=== PATIENT | male | born 1960 | race Caucasian/White ===

== ENCOUNTER 2019-06-24 17:55 | Inpatient (IN) | payer BC, OTHER ==
[2019-06-24] MEDS ORDERED: SODIUM CHLORIDE 0.9% 500 ML 500 ML IV STA (17:58)
[2019-06-24] MEDS ORDERED: PANTOPRAZOLE 40 MG/10 ML VIAL IVP STA (17:58)
[2019-06-24] MEDS ORDERED: LORazepam 2 MG/ML INJ IV STA (17:58)
[2019-06-24] MEDS ORDERED: SODIUM CHLORIDE 0.9% 1,000 ML IV STA (17:58)
[2019-06-24] MEDS ORDERED: OCTREOTIDE 100 MCG/ML INJ IVP STA (18:01)
--- NOTE | 2019-06-24 18:02 | ED ---
General Adult HPI - General Stated complaint: Vomiting blood Time Seen by Provider: 06/24/19 17:55 Source: patient, family, EMS, RN notes reviewed, old records reviewed - History of Present Illness Initial comments: This is a 58-year-old male who presents emergency Department with a past medical history significant for alcoholism. Patient states over the last few days been having dark black stools and today he got home he was having an upset stomach and he vomited 3-4 times bright red blood. Patient states he no longer is having any abdominal pain. Patient denies any lightheadedness or dizziness. Patient denies any palpitations or chest pain. Patient denies any difficulty breathing shortness of breath. Patient states he did have some whiskey when he got home today. Patient denies any recent fever chills or cough. Patient denies any blood thinners. Patient denies ever having any bleeding problems in the past. - Related Data Home Medications Medication Instructions Recorded Confirmed Ascorbic Acid [Vitamin C] 1,000 mg PO HS 06/24/19 06/24/19 Rosuvastatin [Crestor] 20 mg PO HS 06/24/19 06/24/19 amLODIPine BESYLATE/BENAZEPRIL 1 cap PO DAILY 06/24/19 06/24/19 [amLODIPine BESYLATE/BENAZEPRIL 10-20 MG] Allergies Allergy/AdvReac Type Severity Reaction Status Date / Time codeine Allergy Rash/Hives Verified 06/24/19 18:44 Penicillins Allergy Rash/Hives Verified 06/24/19 18:44 Review of Systems ROS Statement: Those systems with pertinent positive or pertinent negative responses have been documented in the HPI. ROS Other: All systems not noted in ROS Statement are negative. General Exam - General Exam Comments Initial Comments: GENERAL: Patient is well-developed and well-nourished. Patient is nontoxic and well- hydrated and is in mild distress. ENT: Neck is soft and supple. No significant lymphadenopathy is noted. Oropharynx is clear. Moist mucous membranes. Neck has full range of motion without eliciting any pain. EYES: The sclera were anicteric and conjunctiva were pink and moist. Extraocular movements were intact and pupils were equal round and reactive to light. Eyelids were unremarkable. PULMONARY: Unlabored respirations. Good breath sounds bilaterally. No audible rales rhonchi or wheezing was noted. CARDIOVASCULAR: There is a regular rate and rhythm without any murmurs gallops or rubs. ABDOMEN: Soft and nontender with normal bowel sounds. SKIN: Skin is clear with no lesions or rashes and otherwise unremarkable. NEUROLOGIC: Patient is alert and oriented x3. Cranial nerves II through XII are grossly intact. Motor and sensory are also intact. Normal speech, volume and content. Symmetrical smile. MUSCULOSKELETAL: Normal extremities with adequate strength and full range of motion. LYMPHATICS: No significant lymphadenopathy is noted PSYCHIATRIC: Normal psychiatric evaluation. Course Vital Signs 06/24/19 18:04 Temperature 98.6 F Pulse Rate 109 H Respiratory 19 Rate Blood Pressure 106/75 O2 Sat by Pulse 100 Oximetry Medical Decision Making - Medical Decision Making EKG shows sinus tachycardia at 110 bpm NM interval 142 QRS 110 QT interval 356 QTC is 41 per patient's EKG shows no ST segment elevation or depression - Lab Data Result diagrams: 06/24/19 18:07 06/24/19 18:07 Lab Results 06/24/19 06/24/19 06/24/19 Range/Units 18:07 18:07 18:07 WBC 13.3 H (3.8-10.6) k/uL RBC 3.27 L (4.30-5.90) m/uL Hgb 10.8 L (13.0-17.5) gm/dL Hct 31.7 L (39.0-53.0) % MCV 96.8 (80.0-100.0) fL MCH 33.1 (25.0-35.0) pg MCHC 34.2 (31.0-37.0) g/dL RDW 13.6 (11.5-15.5) % Plt Count 208 (150-450) k/uL Neutrophils % 72 % Lymphocytes % 20 % Monocytes % 4 % Eosinophils % 2 % Basophils % 0 % Neutrophils # 9.6 H (1.3-7.7) k/uL Lymphocytes # 2.7 (1.0-4.8) k/uL Monocytes # 0.5 (0-1.0) k/uL Eosinophils # 0.3 (0-0.7) k/uL Basophils # 0.0 (0-0.2) k/uL PT 10.3 (9.0-12.0) sec INR 1.0 (<1.2) APTT 17.8 L (22.0-30.0) sec Sodium 135 L (137-145) mmol/L Potassium 4.0 (3.5-5.1) mmol/L Chloride 104 (98-107) mmol/L Carbon Dioxide 22 (22-30) mmol/L Anion Gap 9 mmol/L BUN 24 H (9-20) mg/dL Creatinine 0.82 (0.66-1.25) mg/dL Est GFR (CKD-EPI)AfAm >90 (>60 ml/min/1.73 sqM) Est GFR (CKD-EPI)NonAf >90 (>60 ml/min/1.73 sqM) Glucose 101 H (74-99) mg/dL Calcium 8.9 (8.4-10.2) mg/dL Magnesium 1.5 L (1.6-2.3) mg/dL Total Bilirubin 0.7 (0.2-1.3) mg/dL AST 64 H (17-59) U/L ALT 46 (4-49) U/L Alkaline Phosphatase 86 (38-126) U/L Troponin I (0.000-0.034) ng/mL Total Protein 6.1 L (6.3-8.2) g/dL Albumin 4.0 (3.5-5.0) g/dL Lipase 84 (23-300) U/L Serum Alcohol 11 mg/dL Blood Type Blood Type Confirm Blood Type Recheck Bld Type Recheck Status Antibody Screen Spec Expiration Date 06/24/19 06/24/19 06/24/19 Range/Units 18:07 18:07 18:45 WBC (3.8-10.6) k/uL RBC (4.30-5.90) m/uL Hgb (13.0-17.5) gm/dL Hct (39.0-53.0) % MCV (80.0-100.0) fL MCH (25.0-35.0) pg MCHC (31.0-37.0) g/dL RDW (11.5-15.5) % Plt Count (150-450) k/uL Neutrophils % % Lymphocytes % % Monocytes % % Eosinophils % % Basophils % % Neutrophils # (1.3-7.7) k/uL Lymphocytes # (1.0-4.8) k/uL Monocytes # (0-1.0) k/uL Eosinophils # (0-0.7) k/uL Basophils # (0-0.2) k/uL PT (9.0-12.0) sec INR (<1.2) APTT (22.0-30.0) sec Sodium (137-145) mmol/L Potassium (3.5-5.1) mmol/L Chloride (98-107) mmol/L Carbon Dioxide (22-30) mmol/L Anion Gap mmol/L BUN (9-20) mg/dL Creatinine (0.66-1.25) mg/dL Est GFR (CKD-EPI)AfAm (>60 ml/min/1.73 sqM) Est GFR (CKD-EPI)NonAf (>60 ml/min/1.73 sqM) Glucose (74-99) mg/dL Calcium (8.4-10.2) mg/dL Magnesium (1.6-2.3) mg/dL Total Bilirubin (0.2-1.3) mg/dL AST (17-59) U/L ALT (4-49) U/L Alkaline Phosphatase (38-126) U/L Troponin I <0.012 (0.000-0.034) ng/mL Total Protein (6.3-8.2) g/dL Albumin (3.5-5.0) g/dL Lipase (23-300) U/L Serum Alcohol mg/dL Blood Type O Positive Blood Type Confirm O Positive Blood Type Recheck No Previous Record Bld Type Recheck Status CABO Indicated Antibody Screen NEGATIVE Spec Expiration Date 06/27/20192306 Disposition Clinical Impression: Alcohol abuse, Hematemesis, Melena Disposition: ADMITTED IP TO THIS HOSP Referrals: Bart Bey DO [Primary Care Provider] - 1-2 days Time of Disposition: 19:18
[2019-06-24 18:17] LABS: Basophils % (A) 0 %; Eosinophils # (A) 0.3 k/uL (0-0.7); Eosinophils % (A) 2 %; HCT 31.7 % (39.0-53.0); HGB 10.8 gm/dL (13.0-17.5); Lymphocytes # (A) 2.7 k/uL (1.0-4.8); Lymphocytes % (A) 20 %; MCH 33.1 pg (25.0-35.0); MCHC 34.2 g/dL (31.0-37.0); MCV 96.8 fL (80.0-100.0); Mean Platelet Volume 7.4; Monocytes # (A) 0.5 k/uL (0-1.0); Monocytes % (A) 4 %; Neutrophils # (A) 9.6 k/uL (1.3-7.7); Neutrophils % (A) 72 %; Platelet Count 208 k/uL (150-450); RBC 3.27 m/uL (4.30-5.90); RDW 13.6 % (11.5-15.5); WBC 13.3 k/uL (3.8-10.6)
[2019-06-24 18:27] LABS: ALT 46 U/L (4-49); AST 64 U/L (17-59); African American GFR (CKD) >90 (>60 ml/min/1.73 sqM); Alcohol 11 mg/dL; Alkaline Phosphatase 86 U/L (38-126); Anion Gap 9 mmol/L; Blood Urea Nitrogen 24 mg/dL (9-20); Calcium 8.9 mg/dL (8.4-10.2); Carbon Dioxide 22 mmol/L (22-30); Chloride 104 mmol/L (98-107); Glucose 101 mg/dL (74-99); Magnesium 1.5 mg/dL (1.6-2.3); Non-African American GFR(CKD) >90 (>60 ml/min/1.73 sqM); Sodium 135 mmol/L (137-145); Total Bilirubin 0.7 mg/dL (0.2-1.3); Total Protein 6.1 g/dL (6.3-8.2)
[2019-06-24 18:30] LABS: Prothrombin Time 10.3 sec (9.0-12.0)
[2019-06-24 18:34] LABS: Partial Thromboplastin Time 17.8 sec (22.0-30.0)
--- NOTE | 2019-06-24 19:07 | XR ---
EXAMINATION TYPE: XR chest 2V DATE OF EXAM: 06/24/2019 COMPARISON: NONE HISTORY: Vomiting blood TECHNIQUE: 2 views FINDINGS: Heart and mediastinum are normal. There is some mild linear density right middle lobe. Ther e are no hilar masses. Bony thorax is intact. There are chest leads. IMPRESSION: Mild subsegmental atelectasis or scarring in the anterior right middle lobe. Normal heart .
[2019-06-24] MEDS ORDERED: SODIUM CHLORIDE 0.9% 1,000 ML IV ONE ×2 (19:18→22:32)
[2019-06-24] MEDS ORDERED: LORazepam 2 MG/ML INJ IV PRN ×3 (19:20)
[2019-06-24] MEDS ORDERED: THIAMINE 100 MG/ML 2 ML VIAL IM STA (19:20)
[2019-06-24] MEDS: THIAMINE 100 MG TAB PO SCH (19:32)
--- NOTE | 2019-06-24 22:12 | P.HPIM ---
History of Present Illness H&P Date: 06/24/19 The patient is a 58-year-old male with a PMH of hypertension, hyperlipidemia, tobacco abuse, and EtOH abuse who presented to the ED with complaints of black stools and bloody vomitus. The patient notes that he initially noticed dark black stools a few days prior, though didn't pay much attention to it. He reports that earlier today, he had a sudden onset of nausea with 3-4 episodes of bright red large vomitus. He denied a previous history of peptic ulcer disease, or esophageal varices. He notes no previous episodes of GI bleeding or bleeding elsewhere. He notes that immediately following the episodes of vomiting, he felt dizzy, which lasted for a few minutes. He denied any further episodes of abdominal pain, nausea, diarrhea, fever, chills. He also denied recent travel, sick contacts, chest pain, shortness of breath. The patient notes that he usually drinks 4-5 shots of whiskey daily, and has been doing so for several decades. He reports his last drink was yesterday evening. The patient underwent an extensive evaluation in the emergency room. His vitals upon presentation were BP 106/75, pulse 109, temperature 98.6, and SpO2 100% on room air. Chest x-ray was unremarkable, with EKG showing sinus tachycardia at 110 bpm with an incomplete right bundle branch block. Laboratory evaluation revealed a WBC count 13.3, hemoglobin 10.8, platelets 208, alcohol level 11, sodium 135, potassium 4.0, BUN 24, and creatinine 0.8, troponin less than 0.012, AST 64, magnesium 1.5, and albumin 4.0. Review of Systems Pertinent positives and negatives as discussed in HPI, a complete review of systems was performed and all other systems are negative. Past Medical History Past Medical History: Hyperlipidemia, Hypertension Additional Past Medical History / Comment(s): ETOH- 6-8 shots/ day History of Any Multi-Drug Resistant Organisms: None Reported Past Surgical History: Back Surgery, Cholecystectomy Additional Past Surgical History / Comment(s): prostate CA and surgery in 2013, back sx 2019 Past Anesthesia/Blood Transfusion Reactions: No Reported Reaction Smoking Status: Current every day smoker Past Alcohol Use History: Abuse, Daily Past Drug Use History: None Reported Medications and Allergies Home Medications Medication Instructions Recorded Confirmed Type Ascorbic Acid [Vitamin C] 1,000 mg PO HS 06/24/19 06/24/19 History Rosuvastatin [Crestor] 20 mg PO HS 06/24/19 06/24/19 History amLODIPine BESYLATE/BENAZEPRIL 1 cap PO DAILY 06/24/19 06/24/19 History [amLODIPine BESYLATE/BENAZEPRIL 10-20 MG] Allergies Allergy/AdvReac Type Severity Reaction Status Date / Time codeine Allergy Rash/Hives Verified 06/24/19 18:44 Penicillins Allergy Rash/Hives Verified 06/24/19 18:44 Physical Exam Vitals: Vital Signs Temp Pulse Resp BP Pulse Ox 06/24/19 19:34 98.1 F 90 18 99/68 98 06/24/19 18:04 98.6 F 109 H 19 106/75 100 Intake and Output 06/24/19 06/24/19 06/24/19 06:59 14:59 22:59 Other: Voiding Method Toilet Weight 70.307 kg General: non toxic, no distress, appears at stated age, normal weight Derm: no unusual rashes/lesions no unusual ecchymoses, warm, dry Head: atraumatic, normocephalic, symmetric Eyes: EOMI, no lid lag, anicteric sclera, pupils equal round reactive to light ENT: Nose and ears atraumatic, no thrush, no pharyngeal erythema Neck: No thyromegaly, no cervical lymphadenopathy, trachea midline, supple Mouth: no lip lesion, mucus membranes moist Cardiovascular: S1S2 reg, no murmur, positive posterior tibial pulse bilateral, no edema, capillary refill less than 2 seconds Lungs: CTA bilateral, no rhonchi, no rales , no accessory muscle use Abdominal: soft, nontender to palpation, no guarding, no appreciable organomegaly, normal bowel sounds Ext: no gross muscle atrophy, muscle strength 5 out of 5 in all 4 extremities grossly, no contractures, Neuro: CN II-XI grossly intact, light touch intact all 4 extremities, finger to nose within normal limits, Psych: Alert, oriented, appropriate affect Results CBC & Chem 7: 06/24/19 18:07 06/24/19 18:07 Labs: Abnormal Lab Results - Last 24 Hours (Table) 06/24/19 06/24/19 06/24/19 Range/Units 18:07 18:07 18:07 WBC 13.3 H (3.8-10.6) k/uL RBC 3.27 L (4.30-5.90) m/uL Hgb 10.8 L (13.0-17.5) gm/dL Hct 31.7 L (39.0-53.0) % Neutrophils # 9.6 H (1.3-7.7) k/uL APTT 17.8 L (22.0-30.0) sec Sodium 135 L (137-145) mmol/L BUN 24 H (9-20) mg/dL Glucose 101 H (74-99) mg/dL Magnesium 1.5 L (1.6-2.3) mg/dL AST 64 H (17-59) U/L Total Protein 6.1 L (6.3-8.2) g/dL Thrombosis Risk Factor Assmnt - Choose All That Apply Each Factor Represents 1 point: Age 41-60 years Thrombosis Risk Factor Assessment Total Risk Factor Score: 1 Thrombosis Risk Factor Assessment Level: Low Risk Assessment and Plan Plan: Acute blood loss anemia with hematemesis and melena -Possibly secondary to esophageal varices versus peptic ulcer disease -Continue with Protonix IV push every 12 hourly -GI consult -CBC every 8 hourly -Continue with normal saline 100 mL an hour -Continue with thiamine -CIWA protocol -Aspiration, fall, seizure precautions -Nothing by mouth for now -Strongly advised on importance of abstinence from alcohol Hypomagnesemia -Replace and monitor Leukocytosis -No signs of active infection at this time -Likely due to acute distress -Monitor CBC Elevated BUN, likely due to acute GI bleed -Monitor for now -Continue with IV fluids DVT prophylaxis -IPCDs The patient is admitted with an anticipated greater than 2 midnight stay for evaluation of acute blood loss anemia CODE STATUS: Full Code Discussed with: Patient Anticipated discharge date: 2-[address]: Home A total of 40 minutes was spent on the care of this complex patient more than 50% of the time was spent in counseling and care coordination.
[2019-06-24] MEDS: MAGNESIUM SULFATE-D5W PMX 1 GM in DEXTROSE/WATER 1 100ML.BAG IVPB SCH ×2 (22:36→23:40)
[2019-06-24] MEDS: ATORVASTATIN 40 MG TAB PO SCH (23:19)
[2019-06-24 23:53] LABS: MCHC 33.5 g/dL (31.0-37.0); MCV 98.2 fL (80.0-100.0); Mean Platelet Volume 7.5; Platelet Count 157 k/uL (150-450); RBC 2.64 m/uL (4.30-5.90); RDW 13.5 % (11.5-15.5); WBC 7.1 k/uL (3.8-10.6)
[2019-06-24 23:55] LABS: HGB 8.7 gm/dL (13.0-17.5)
[2019-06-25] MEDS: MAGNESIUM SULFATE-D5W PMX 1 GM in DEXTROSE/WATER 1 100ML.BAG IVPB SCH (00:49)
--- NOTE | 2019-06-25 01:33 | P.PN ---
Progress Note - Text Progress Note Date: 06/25/19 The patient's Hgb dropped from 10.8 to 8.7 with persistent borderline BP. Discussed the case with Dr. Nuñez (GI bus driver/monitor), who recommended transferring the patient to MICU and initiating Octreotide infusion. Discussed with Dr. Rubi, who accepted the patient. Will transfer to MICU. 1 U pRBCs ordered. The patient was seen at the bedside on the Med/Surg unit at 0100. He noted feeling okay albeit somewhat tired. Denied dizziness, abdominal pain, chest pain, SOB, further episodes of vomiting or additional bowel movements.
[2019-06-25] MEDS ORDERED: OCTREOTIDE 500 MCG in SODIUM CHLORIDE 0.9% 250 ML IV SCH (02:00)
[2019-06-25 02:21] LABS: Glucose,Whole Blood 142 mg/dL (75-99)
[2019-06-25 07:28] LABS: Basophils % (A) 0 %; Eosinophils # (A) 0.2 k/uL (0-0.7); Eosinophils % (A) 3 %; HCT 29.8 % (39.0-53.0); HGB 10.2 gm/dL (13.0-17.5); Lymphocytes # (A) 1.4 k/uL (1.0-4.8); Lymphocytes % (A) 24 %; MCH 33.3 pg (25.0-35.0); MCHC 34.3 g/dL (31.0-37.0); MCV 96.9 fL (80.0-100.0); Mean Platelet Volume 7.6; Monocytes # (A) 0.4 k/uL (0-1.0); Monocytes % (A) 7 %; Neutrophils # (A) 3.5 k/uL (1.3-7.7); Neutrophils % (A) 64 %; Platelet Count 161 k/uL (150-450); RBC 3.08 m/uL (4.30-5.90); RDW 13.9 % (11.5-15.5); WBC 5.5 k/uL (3.8-10.6)
[2019-06-25 08:19] LABS: ALT 153 U/L (4-49); AST 449 U/L (17-59); African American GFR (CKD) >90 (>60 ml/min/1.73 sqM); Albumin 3.1 g/dL (3.5-5.0); Alkaline Phosphatase 142 U/L (38-126); Anion Gap 3 mmol/L; Blood Urea Nitrogen 17 mg/dL (9-20); Calcium 8.1 mg/dL (8.4-10.2); Carbon Dioxide 25 mmol/L (22-30); Chloride 109 mmol/L (98-107); Glucose 102 mg/dL (74-99); Magnesium 2.3 mg/dL (1.6-2.3); Non-African American GFR(CKD) >90 (>60 ml/min/1.73 sqM); Potassium 4.5 mmol/L (3.5-5.1); Sodium 137 mmol/L (137-145); Total Protein 5.3 g/dL (6.3-8.2)
[2019-06-25] MEDS: THIAMINE 100 MG TAB PO SCH ×2 (08:19→17:19)
[2019-06-25] MEDS: PANTOPRAZOLE 40 MG/10 ML VIAL IVP SCH ×2 (08:32→20:06)
[2019-06-25] MEDS ORDERED: PANTOPRAZOLE 40 MG/10 ML VIAL IVP SCH (09:00)
[2019-06-25] MEDS ORDERED: diphenhydrAMINE 50 MG/ML 1 ML VIAL IVP PRN (10:02)
--- NOTE | 2019-06-25 10:19 | P.PN ---
Subjective Progress Note Date: 06/25/19 Principal diagnosis: GI bleeding Patient having severe itching in his left arm and due to the itch he currently has scabs all over his left arm. No further bleeding since he came in to the hospital. No nausea or vomiting. No pain. Objective - Vital Signs Vital signs: Vital Signs Temp 98 F 06/25/19 08:00 Pulse 83 06/25/19 09:00 Resp 12 06/25/19 09:00 BP 102/75 06/25/19 09:00 Pulse Ox 99 06/25/19 09:00 Intake & Output 06/24/19 06/25/19 06/25/19 18:59 06:59 18:59 Intake Total 1070.0 312.5 Output Total 1100 1100 Balance -30.0 -787.5 Weight 70.307 kg 70.307 kg Intake: IV 450.0 312.5 Octreotide 500 mcg In 50.0 12.5 Sodium Chloride 0.9% 250 ml @ 25 MCG/HR 12.5 mls/ hr IV .Q20H [facility] Rx#: [id number] Sodium Chloride 0.9% 1, 400 300 000 ml @ 100 mls/hr IV . Q10H [facility] Rx#:[id number] Blood Product 620 Rc Pheresis As-3 Unit 310 [id number] Output: Urine 1100 1100 Other: Voiding Method Urinal Urinal # Voids 1 - Exam Constitutional: No acute distress, conversant, pleasant Eyes:Anicteric sclerae, moist conjunctiva, no lid-lag, PERRLA, ENMT: Oropharynx clear, no erythema, exudates Neck: Supple, FROM, no masses, or JVD, No carotid bruits, No thyromegaly Lungs: Clear to auscultation, Clear to percussion, Normal respiratory effort, no accessory muscle use Cardiovascular: Heart regular in rate and rhythm, No murmurs, gallops, or rubs, No peripheral edema Abdominal: Soft, Nontender, no guarding, rebound or rigidity, Normoactive bowel sounds, No hepatomegaly, No splenomegaly, No palpable mass Skin: Scabs over the left arm. Normal temperature, tone, texture, turgor, no induration, No subcutaneous nodules, No rash, lesions, No ulcers Extremities: No digital cyanosis, No clubbing, Pedal pulses intact and symmetrical, Radial pulses intact and symmetrical, No calf tenderness Psychiatric: Alert and oriented to person, place and time, appropriate affect, intact judgement Neuro: Muscles Strength 5/5 in all 4 extremities, Sensation to light touch grossly present throughout, Cranial nerves II-XII grossly intact, no focal sensory deficits - Labs CBC & Chem 7: 06/25/19 07:16 06/25/19 07:16 Labs: Abnormal Lab Results - Last 24 Hours (Table) 06/24/19 06/24/19 06/24/19 Range/Units 18:07 18:07 18:07 WBC 13.3 H (3.8-10.6) k/uL RBC 3.27 L (4.30-5.90) m/uL Hgb 10.8 L (13.0-17.5) gm/dL Hct 31.7 L (39.0-53.0) % Neutrophils # 9.6 H (1.3-7.7) k/uL APTT 17.8 L (22.0-30.0) sec Sodium 135 L (137-145) mmol/L Chloride (98-107) mmol/L BUN 24 H (9-20) mg/dL Glucose 101 H (74-99) mg/dL POC Glucose (mg/dL) (75-99) mg/dL Calcium (8.4-10.2) mg/dL Magnesium 1.5 L (1.6-2.3) mg/dL Total Bilirubin (0.2-1.3) mg/dL AST 64 H (17-59) U/L ALT (4-49) U/L Alkaline Phosphatase (38-126) U/L Total Protein 6.1 L (6.3-8.2) g/dL Albumin (3.5-5.0) g/dL Crossmatch 06/24/19 06/24/19 06/25/19 Range/Units 18:07 23:20 02:18 WBC (3.8-10.6) k/uL RBC 2.64 L (4.30-5.90) m/uL Hgb 8.7 L D (13.0-17.5) gm/dL Hct 26.0 L (39.0-53.0) % Neutrophils # (1.3-7.7) k/uL APTT (22.0-30.0) sec Sodium (137-145) mmol/L Chloride (98-107) mmol/L BUN (9-20) mg/dL Glucose (74-99) mg/dL POC Glucose (mg/dL) 142 H (75-99) mg/dL Calcium (8.4-10.2) mg/dL Magnesium (1.6-2.3) mg/dL Total Bilirubin (0.2-1.3) mg/dL AST (17-59) U/L ALT (4-49) U/L Alkaline Phosphatase (38-126) U/L Total Protein (6.3-8.2) g/dL Albumin (3.5-5.0) g/dL Crossmatch See Detail 06/25/19 06/25/19 Range/Units 07:16 07:16 WBC (3.8-10.6) k/uL RBC 3.08 L (4.30-5.90) m/uL Hgb 10.2 L (13.0-17.5) gm/dL Hct 29.8 L (39.0-53.0) % Neutrophils # (1.3-7.7) k/uL APTT (22.0-30.0) sec Sodium (137-145) mmol/L Chloride 109 H (98-107) mmol/L BUN (9-20) mg/dL Glucose 102 H (74-99) mg/dL POC Glucose (mg/dL) (75-99) mg/dL Calcium 8.1 L (8.4-10.2) mg/dL Magnesium (1.6-2.3) mg/dL Total Bilirubin 2.0 H (0.2-1.3) mg/dL AST 449 H (17-59) U/L ALT 153 H (4-49) U/L Alkaline Phosphatase 142 H (38-126) U/L Total Protein 5.3 L (6.3-8.2) g/dL Albumin 3.1 L (3.5-5.0) g/dL Crossmatch Assessment and Plan Plan: Acute blood loss anemia with hematemesis and melena -Bleeding currently resolved. Possibly secondary to esophageal varices versus peptic ulcer disease -Continue with Protonix IV push every 12 hourly, continue octreotide drip recommended by GI -CBC every 8 hourly -S/p 1 unit of PRBCs on 06/23 -Continue with normal saline 100 mL an hour -Continue with thiamine -CIWA protocol -Aspiration, fall, seizure precautions -Nothing by mouth for now -Strongly advised on importance of abstinence from alcohol -Plan EGD by GI Hypomagnesemia -Replace and monitor Hyperbilirubinemia, elevated LFTs Could be secondary to acute hepatitis induced by alcohol Trend LFTs and bilirubin for now Benadryl as needed for itching Leukocytosis -Resolved -Likely due to acute distress DVT prophylaxis -IPCDs Anticipated discharge date: 2-[address]: Home A total of 40 minutes was spent on the care of this complex patient more than 50% of the time was spent in counseling and care coordination.
--- NOTE | 2019-06-25 10:32 | US ---
EXAMINATION TYPE: US abdomen complete DATE OF EXAM: 06/25/2019 COMPARISON: NONE CLINICAL HISTORY: elevated LFTs, ETOH abuse. Elevated liver enzymes, history of cholecystectomy, exam done portable. EXAM MEASUREMENTS: Liver Length: 15.1 cm CBD: 1.1 cm Spleen: 8.2 cm Right Kidney: 10.3 x 6.0 x 4.7 cm Left Kidney: 9.9 x 5.9 x 4.9 cm Pancreas: visualized portions wnl, limited by overlying midline bowel gas Liver: wnl Gallbladder: surgically absent Evidence for sonographic Marion's sign: no CBD: mildly dilated Spleen: visualized portions wnl, limited by overlying bowel gas Right Kidney: wnl Left Kidney: wnl Upper IVC: wnl Abd Aorta: wnl The liver is homogenous. The intrahepatic portion of the IVC and proximal abdominal aorta are within normal limits. Common bile duct is mildly dilated. The visualized portions of the pancreas are phillip ogenous. The spleen is unremarkable. Kidneys are symmetric and free of hydronephrosis. No renal le sions are seen. IMPRESSION: Gallbladder is surgically absent and common bile duct is mildly enlarged for post cholecy stectomy patient. MRCP could be considered for further evaluation.
[2019-06-25] MEDS ORDERED: IV FLUID CONTINUATION 1,000 ML IV ONE (10:33)
[2019-06-25] MEDS ORDERED: MIDAZOLAM 2 MG/2 ML VIAL ONE (10:35)
[2019-06-25] MEDS ORDERED: PROPOFOL 10 MG/ML 20 ML VIAL IV ONE (10:35)
[2019-06-25] MEDS ORDERED: fentaNYL (PF) 50 MCG/ML 2 ML AMP ONE (10:35)
[2019-06-25] MEDS ORDERED: SODIUM CHLORIDE 0.9% 500 ML 500 ML IV ONE (10:45)
[2019-06-25] MEDS ORDERED: EPINEPHrine 10 ML SYRINGE (0.1 MG/ML) MISCELLANE ONE (10:55)
--- NOTE | 2019-06-25 10:55 | P.CNPUL ---
History of Present Illness Consult date: 06/25/19 Requesting physician: Tacho Gabriel Reason for consult: other (Upper GI bleeding) Chief complaint: Vomiting blood and black stool History of present illness: This is a 58-year-old white male with history of hypertension, dyslipidemia, history of alcoholic abuse, patient drinks on the average of 4-5 drinks of whiskey and Coke for the last 20 years on a daily basis. No previous history of GI bleeding, no history of peptic ulcer disease, no history of esophageal varices, patient does not use any nonsteroidal anti-inflammatory drugs. Patient presented to the ER, brought in by EMS with chief complaint of vomiting blood and black stools. This started suddenly, although the day prior he had some black stools. After 3-4 episodes of bright red vomitus, patient developed dizziness and diaphoresis. Brought in by EMS and he was initially admitted to the regular medical floor. However overnight patient developed worsening episodes of upper GI bleeding, and his hemoglobin dropped to 8.7 from 10.8. His blood pressure was borderline, hence GI was notified, and recommended icy admission. Patient was admitted to the ICU, placed on octreotide, and he was also placed on Protonix. Supposed to undergo EGD this morning, patient received fluids and so far 1 unit of packed RBCs overnight. He is hemodynamically stable, denies any further episodes of hematemesis since last night. Continues to have a black stools. Again the patient has no previous history of peptic ulcer disease, no history of gastritis, and does not take any nonsteroidal anti- inflammatory drugs. Review of Systems Constitutional: Denies fever chills weight loss. HEENT: Denies headache denies diplopia denies earache denies sore throat. Pulmonary: Denies any cough wheezing or shortness of breath denies any chest pain denies any hemoptysis. Cardiac: Denies any chest pain orthopnea or PND, he did have episodes of diaphoresis while he was vomiting blood. GI: As noted in HPI. Genitourinary: Denies any dysuria frequency urgency hematuria or dysuria. Musculoskeletal: Denies any arthralgia or myalgia. Skin: Denies any pruritus or rashes. Endocrine: Denies any heat or cold intolerance. Neurologic: Denies any headache or blurred vision or vertigo. Psychiatric: Denies any symptoms of anxiety or depression. Hematologic: Denies any previous history of clotting bleeding or bruising. Past Medical History Past Medical History: Hyperlipidemia, Hypertension Additional Past Medical History / Comment(s): ETOH- 6-8 shots/ day History of Any Multi-Drug Resistant Organisms: None Reported Past Surgical History: Back Surgery, Cholecystectomy Additional Past Surgical History / Comment(s): prostate CA and surgery in 2014, back sx 2019 Past Anesthesia/Blood Transfusion Reactions: No Reported Reaction Smoking Status: Current every day smoker Past Alcohol Use History: Abuse, Daily Past Drug Use History: None Reported Medications and Allergies Home Medications Medication Instructions Recorded Confirmed Type Ascorbic Acid [Vitamin C] 1,000 mg PO HS 06/24/19 06/24/19 History Rosuvastatin [Crestor] 20 mg PO HS 06/24/19 06/24/19 History amLODIPine BESYLATE/BENAZEPRIL 1 cap PO DAILY 06/24/19 06/24/19 History [amLODIPine BESYLATE/BENAZEPRIL 10-20 MG] Allergies Allergy/AdvReac Type Severity Reaction Status Date / Time codeine Allergy Rash/Hives Verified 06/24/19 18:44 Penicillins Allergy Rash/Hives Verified 06/24/19 18:44 Physical Exam Vitals: Vital Signs Temp Pulse Pulse Resp BP BP Pulse Ox 06/25/19 09:00 83 12 102/75 99 06/25/19 08:00 98 F 70 12 108/70 98 06/25/19 07:00 67 12 90/62 96 06/25/19 06:00 70 12 106/68 96 06/25/19 05:50 97.9 F 71 12 106/68 94 L 06/25/19 05:00 72 15 103/65 95 06/25/19 04:43 98.3 F 75 16 120/78 98 06/25/19 04:13 98.1 F 69 12 109/68 97 06/25/19 04:03 98.3 F 73 14 112/81 06/25/19 04:00 98.3 F 69 14 111/69 99 06/25/19 03:30 75 14 101/70 95 06/25/19 03:00 70 13 107/75 96 06/25/19 02:30 98.5 F 80 12 111/77 95 06/25/19 00:35 83 97/64 06/24/19 22:24 98.1 F 87 18 94/64 98 06/24/19 19:34 98.1 F 90 18 99/68 98 06/24/19 18:04 98.6 F 109 H 19 106/75 100 Intake and Output 06/24/19 06/25/19 06/25/19 22:59 06:59 14:59 Intake Total 1070.0 312.5 Output Total 1100 1100 Balance -30.0 -787.5 Intake: IV 450.0 312.5 Octreotide 500 mcg In 50.0 12.5 Sodium Chloride 0.9% 250 ml @ 25 MCG/HR 12.5 mls/ hr IV .Q20H [facility] Rx#: [id number] Sodium Chloride 0.9% 1, 400 300 000 ml @ 100 mls/hr IV . Q10H ONE Rx#:[id number] Blood Product 620 Rc Pheresis As-3 Unit 310 [id number] Output: Urine 1100 1100 Other: Voiding Method Toilet Urinal Urinal # Voids 1 Weight 70.307 kg Physical Exam: Revealed a 58-year-old white male in no distress, on room air. Head: Atraumatic normocephalic. HEENT:[Neck is supple.] [No neck masses.] [No thyromegaly.] [No JVD.]EOMI, no icteru Chest: [Clear throughout, no crackles, no rhonchi, no wheezes.] Cardiac Exam: [Normal S1 and S2, no S3 gallop, no murmur.] Abdomen: [Soft, nontender, no megaly, no rebound, no guarding, normal bowel sounds.] Extremities: [No clubbing, no edema, no cyanosis.] Neurological Exam: [No focal neurologic deficit.] Alert and oriented 3. Psychiatric: Normal mood affect and normal mental status examination. Skin: No rashes. Lymphatics: No lymphadenopathy. Musculoskeletal: No limitation in range of motion, no deformities. Results - Laboratory Findings CBC and BMP: 06/25/19 07:16 06/25/19 07:16 PT/INR, D-dimer PT 10.3 sec (9.0-12.0) 06/24/19 18:07 INR 1.0 (<1.2) 06/24/19 18:07 Abnormal lab findings: Abnormal Labs 06/24/19 06/24/19 06/24/19 18:07 18:07 18:07 WBC 13.3 H RBC 3.27 L Hgb 10.8 L Hct 31.7 L Neutrophils # 9.6 H APTT 17.8 L Sodium 135 L Chloride BUN 24 H Glucose 101 H POC Glucose (mg/dL) Calcium Magnesium 1.5 L Total Bilirubin AST 64 H ALT Alkaline Phosphatase Total Protein 6.1 L Albumin Crossmatch 06/24/19 06/24/19 06/25/19 18:07 23:20 02:18 WBC RBC 2.64 L Hgb 8.7 L D Hct 26.0 L Neutrophils # APTT Sodium Chloride BUN Glucose POC Glucose (mg/dL) 142 H Calcium Magnesium Total Bilirubin AST ALT Alkaline Phosphatase Total Protein Albumin Crossmatch See Detail 06/25/19 06/25/19 07:16 07:16 WBC RBC 3.08 L Hgb 10.2 L Hct 29.8 L Neutrophils # APTT Sodium Chloride 109 H BUN Glucose 102 H POC Glucose (mg/dL) Calcium 8.1 L Magnesium Total Bilirubin 2.0 H AST 449 H ALT 153 H Alkaline Phosphatase 142 H Total Protein 5.3 L Albumin 3.1 L Crossmatch - Diagnostic Findings Chest x-ray: image reviewed (Chest x-ray showed mostly mild subsegmental atelectasis or scarring in the right middle lobe) Additional studies: Ultrasound of the abdomen was noted to be basically unremarkable except for mild enlargement of the common bile duct. Assessment and Plan Assessment: Impression: Acute upper GI bleeding, differential diagnoses includes esophageal varices, peptic ulcer disease, or possibly erosive gastritis. EGD is pending. History of benign essential hypertension Acute blood loss anemia with hematemesis and melena. History of alcohol abuse Tobacco dependence syndrome. History of cholecystectomy History of prostate cancer and previous prostatectomy History of cervical spine surgery for cervical disc disease. Recommendation: Continue to monitor in the intensive care unit over the next 24 hours. Continue octreotide Continue Protonix EGD will be done in the next couple of hours. And based on the findings further recommendations will follow. Transfuse for hemoglobin below 7 Continue CIWA protocol for alcohol abuse Counseled regarding smoking cessation and alcohol abuse. We will continue to follow. Time with Patient: Greater than 30
--- NOTE | 2019-06-25 10:59 | P.PCN ---
Date of Procedure: 06/25/19 Procedure(s) Performed: BRIEF HISTORY: Patient is a 54-year-old, pleasant, white male, scheduled for an upper endoscopy as a part of evaluation of acute upper GI bleed. He presented to the hospital with several episodes of hematemesis and melena for the last 3 days' duration. Hemoglobin was 8.9 and according 1 unit of blood transfusion. Current hemoglobin 10 g/dL.. PROCEDURE PERFORMED: Esophagogastroduodenoscopy with injection epinephrine, attempted Endo Clip placement, cautery with gold probe and biopsy. PREOPERATIVE DIAGNOSIS: Acute upper GI bleed IV sedation per anesthesia. PROCEDURE: After informed consent was obtained, the patient was brought into the endoscopy unit. IV sedation was administered by Anesthesia under continuous monitoring. Initially the Olympus GIF-140 video endoscope was inserted into the mouth. Esophagus intubated without any difficulty. It was gradually advanced into the stomach and duodenum and carefully examined. The bulb and the second part of the duodenum appeared normal. The scope at this time was withdrawn to the stomach, adequately insufflated with air, and upon careful examination, there was a 2 cm broad-based ulcer with a visible vessel noted in the antrum of the stomach with no active bleeding. At this time attempted Endo Clip placement was marked successful because of angulation. I injected with 1 in 10,000 epinephrine at the base of the ulcer, about 8 mL was injected followed by cautery using a gold probe. The rest of the mucosa of the antrum, body, cardia and the fundus appeared normal. Biopsies were done from the antrum to rule out H. pylori infection. The scope was then withdrawn into the esophagus. The GE junction was located at 39 cm from the incisors. Small hiatal hernia noted. There were 2 tongues of Smith's appearing mucosa extending 5 mm proximal to the GE junction which was biopsied. The rest of the esophagus appeared normal. There were no erosions or ulcerations seen and the patient tolerated the procedure well. IMPRESSION: 1. 2 cm antral ulcer with a visible vessel status post injection epinephrine, attempted Endo Clip placement, cautery using a gold probe followed by biopsy. 2. Small hiatal hernia and short segment Smith's esophagus status post biopsy. RECOMMENDATIONS: The findings of this examination were discussed with the patient as well as his family. He was advised to follow with the biopsy results. He will continue with IV Protonix 40 mg twice daily. Simvastatin was discontinued. He'll be started on a clear liquid diet and monitor CBC daily 6 hours..
--- NOTE | 2019-06-25 11:31 | CONS ---
CONSULTATION DATE OF DICTATION: 06/25/2019 REASON FOR CONSULTATION: Acute upper GI bleed. HISTORY OF PRESENT ILLNESS: The patient is a 58-year-old pleasant white male with history of heavy alcohol abuse, admitted to the hospital with four episodes of hematemesis. Prior to that, he was having black tarry stools for the last three days duration. He was having some epigastric and periumbilical abdominal pain that started yesterday morning and subsequently became extremely nauseated and short of breath and had about four episodes of bright red emesis at home. He came into the emergency room and subsequently admitted to the hospital to the floor. Through the night, he dropped his hemoglobin from 10 to 8.9 requiring a unit of blood transfusion and was transferred to the intensive care unit. We are consulted for further management. The patient has history of moderate drinking for 20 years. He drinks about 4 to 5 shots of whiskey every day. No prior history of peptic ulcer disease. No recent NSAID use. No prior history of GI bleed. PAST MEDICAL HISTORY: Hypertension, hyperlipidemia, chronic back pain and alcohol abuse. PAST SURGICAL HISTORY: Back surgery, cholecystectomy, prostate surgery for prostate cancer in 2013. MEDICATIONS: Medications at home include vitamin C, Crestor, benazepril. ALLERGIES: CODEINE, PENICILLIN. SOCIAL HISTORY: Chronic smoker. Alcohol use as mentioned above. FAMILY HISTORY: Unremarkable. REVIEW OF SYSTEMS: CARDIOPULMONARY: No chest pain, but did have some shortness of breath GENITOURINARY: No dysuria or hematuria. MUSCULOSKELETAL: Unremarkable. SKIN: Unremarkable. ENDOCRINE: Unremarkable PSYCHIATRIC: Unremarkable. NEUROLOGY: Unremarkable. ENT/VISION: Unremarkable. HEMATOLOGY: Anemia. CONSTITUTIONAL: No recent weight loss. No fever, chills, night sweats. PHYSICAL EXAMINATION: On physical examination, appears comfortable. Blood pressure 108/70, pulse rate 70, temperature 98. HEENT: Examination unremarkable. Conjunctivae pink. Sclerae anicteric. Oral cavity no lesions. NECK: No JVD or lymph node enlargement. CHEST: Clear to auscultation. HEART: Regular rate and rhythm. ABDOMEN: Soft, nontender, nondistended. Bowel sounds are positive. No organomegaly. EXTREMITIES: No pedal edema. SKIN: No rashes. NEUROLOGIC: Alert and oriented x3. No focal deficits. LABS: WBC 13.3, hemoglobin 10.8 down to 8.7 yesterday, received one unit of blood transfusion last night and today it is 10.2. BUN is 24, creatinine 0.8. T-bilirubin 0.7, AST and ALT are 64 and 46 respectively, alkaline phosphatase 86. Today T-bilirubin went up to 2. AST 449, ALT 156, alkaline phosphatase 143, albumin 3.1. Serum alcohol was 11. Ultrasound of the abdomen was done in the ER yesterday that showed evidence of homogenous appearing liver and slight dilation of the common bile duct. IMPRESSION: 1. Acute upper gastrointestinal bleed. The patient presented to the hospital with several episodes of coffee-ground hematemesis The plan has been having melena for the last 3 to 4 days duration. Hemoglobin was 8.9, received one unit of blood transfusion and presently it is 10.2 g/dL. He did have an episode of hypotension last night and he was transferred to the intensive care unit. He was started on IV Sandostatin for presumed esophageal bleeding. 2. Alcohol abuse of years duration. 3. Elevated LFTs consistent with alcoholic liver disease. The possibility of ischemic hepatitis also needs to be considered. RECOMMENDATIONS: 1. Continue with IV Sandostatin at 50 mcg/hour infusion. 2. Continue with IV Protonix. 3. CBC every 6 hours. 4. We will proceed with an upper endoscopy today. Discussed with the patient, risks, benefits and complications of the procedure and he is agreeable to it. 5. Obtain hepatitis viral serologies for A, B and C and we will follow with you closely. Thank you for this consultation. RADHA / ANGELN: [id number] /
[2019-06-25 17:09] LABS: Hepatitis A Antibody IgM Non-Reactive (Non-Reactive); Hepatitis B Core IgM Non-Reactive (Non-Reactive); Hepatitis B Surface Antigen Non-Reactive (Non-Reactive); Hepatitis C IgG Antibody Non-Reactive (Non-Reactive)
[2019-06-25] MEDS: ATORVASTATIN 40 MG TAB PO SCH (20:06)
[2019-06-26 05:55] LABS: Basophils % (A) 1 %; Eosinophils # (A) 0.3 k/uL (0-0.7); Eosinophils % (A) 4 %; HCT 30.2 % (39.0-53.0); HGB 10.3 gm/dL (13.0-17.5); Lymphocytes # (A) 1.4 k/uL (1.0-4.8); Lymphocytes % (A) 21 %; MCH 33.3 pg (25.0-35.0); MCHC 34.2 g/dL (31.0-37.0); MCV 97.2 fL (80.0-100.0); Mean Platelet Volume 7.6; Monocytes # (A) 0.6 k/uL (0-1.0); Monocytes % (A) 9 %; Neutrophils % (A) 63 %; Platelet Count 180 k/uL (150-450); RDW 13.8 % (11.5-15.5); WBC 6.3 k/uL (3.8-10.6)
[2019-06-26 06:13] LABS: ALT 123 U/L (4-49); AST 157 U/L (17-59); African American GFR (CKD) >90 (>60 ml/min/1.73 sqM); Albumin 3.5 g/dL (3.5-5.0); Alkaline Phosphatase 140 U/L (38-126); Anion Gap 2 mmol/L; Blood Urea Nitrogen 9 mg/dL (9-20); Calcium 8.4 mg/dL (8.4-10.2); Carbon Dioxide 29 mmol/L (22-30); Chloride 105 mmol/L (98-107); Glucose 107 mg/dL (74-99); Magnesium 2.2 mg/dL (1.6-2.3); Non-African American GFR(CKD) >90 (>60 ml/min/1.73 sqM); Phosphorus 3.2 mg/dL (2.5-4.5); Sodium 136 mmol/L (137-145); Total Bilirubin 0.8 mg/dL (0.2-1.3); Total Protein 5.6 g/dL (6.3-8.2)
[2019-06-26] MEDS: THIAMINE 100 MG TAB PO SCH (06:53)
[2019-06-26] MEDS: PANTOPRAZOLE 40 MG/10 ML VIAL IVP SCH (08:07)
[2019-06-26 09:02] VITALS: TEMP 97.8
--- NOTE | 2019-06-26 10:02 | P.DS ---
Providers Date of admission: 06/25/19 03:00 Expected date of discharge: 06/26/19 Attending physician: Tacho Gabriel MD Consults: 06/24/19 19:18 Consult Physician Urgent Consulting Provider: Heather Nuñez Consult Reason/Comments: Hematemesis Do you want consulting provider notified?: Yes 06/25/19 03:17 Consult Physician Routine Consulting Provider: Manule Rubi Consult Reason/Comments: GIB - ICU management Do you want consulting provider notified?: Already Contacted Primary care physician: [facility] Course: 58-year-old male with a PMH of hypertension, hyperlipidemia, tobacco abuse, and EtOH abuse who presented to the ED with complaints of black stools and bloody vomitus. He had a sudden onset of nausea with 3-4 episodes of bright red large vomitus. He denied a previous history of peptic ulcer disease, or esophageal varices. He notes no previous episodes of GI bleeding or bleeding elsewhere. He notes that immediately following the episodes of vomiting, he felt dizzy, which lasted for a few minutes. He denied any further episodes of abdominal pain, nausea, diarrhea, fever, chills. He also denied recent travel, sick contacts, chest pain, shortness of breath. The patient notes that he usually drinks 4-5 shots of whiskey daily, and has been doing so for several decades. He reports his last drink was yesterday evening. The patient underwent an extensive evaluation in the emergency room. His vitals upon presentation were BP 106/75, pulse 109, temperature 98.6, and SpO2 100% on room air. Chest x-ray was unremarkable, with EKG showing sinus tachycardia at 110 bpm with an incomplete right bundle branch block. Laboratory evaluation revealed a WBC count 13.3, hemoglobin 10.8, platelets 208, alcohol level 11, sodium 135, potassium 4.0, BUN 24, and creatinine 0.8, troponin less than 0.012, AST 64, magnesium 1.5, and albumin 4.0. Patient was admitted to the hospital, started on Protonix drip. On the night of admission his hemoglobin dropped to 8.7, he was given 1 unit of packed red blood cells. Octreotide drip was added per GIs request. Patient had upper endoscopy on 06/24, which showed a bleeding antral ulcer in the stomach, this also had visible vessel on the base. He had local epinephrine injection and it was also cauterized. Bleeding has been controlled. He did not have any further episodes of hematemesis or hematochezia. His hemoglobin remained stable. His LFTs trended up throughout the admission and that was thought to be secondary to alcohol liver damage. Patient was advised to quit. Statin was held. Viral hepatitis profile came back negative. LFTs stabilized. No more bleeding noted. Patient will be discharged home in stable condition. Time for discharge 35 min Plan - Discharge Summary Discharge Rx Participant: No New Discharge Prescriptions: New Pantoprazole Sodium [Protonix] 40 mg PO BID 30 Days #60 tablet. Continue amLODIPine BESYLATE/BENAZEPRIL [amLODIPine BESYLATE/BENAZEPRIL 10-20 MG] 1 cap PO DAILY Ascorbic Acid [Vitamin C] 1,000 mg PO HS Discontinued Rosuvastatin [Crestor] 20 mg PO HS Discharge Medication List Ascorbic Acid [Vitamin C] 1,000 mg PO HS 06/24/19 [History] amLODIPine BESYLATE/BENAZEPRIL [amLODIPine BESYLATE/BENAZEPRIL 10-20 MG] 1 cap PO DAILY 06/24/19 [History] Pantoprazole Sodium [Protonix] 40 mg PO BID 30 Days #60 tablet. 06/26/19 [Rx] Follow up Appointment(s)/Referral(s): Bart Bey DO [Primary Care Provider] - 1-2 days Heather Nuñez MD [STAFF PHYSICIAN] - 07/18/19 10:15 am Patient Instructions/Handouts: Abuse of Alcohol (DC), Hematemesis (GEN), Melena (GEN)
[2019-06-26 11:28] VITALS: BP 109/81; PULSE 73; RESP 15
--- NOTE | 2019-06-26 11:46 | P.PN ---
Subjective Progress Note Date: 06/26/19 Principal diagnosis: Upper GI bleeding secondary to gastric ulcer disease. This is a 58-year-old white male with history of hypertension, dyslipidemia, history of alcoholic abuse, patient drinks on the average of 4-5 drinks of whiskey and Coke for the last 20 years on a daily basis. No previous history of GI bleeding, no history of peptic ulcer disease, no history of esophageal varices, patient does not use any nonsteroidal anti-inflammatory drugs. Patient presented to the ER, brought in by EMS with chief complaint of vomiting blood and black stools. This started suddenly, although the day prior he had some black stools. After 3-4 episodes of bright red vomitus, patient developed dizziness and diaphoresis. Brought in by EMS and he was initially admitted to the regular medical floor. However overnight patient developed worsening episodes of upper GI bleeding, and his hemoglobin dropped to 8.7 from 10.8. His blood pressure was borderline, hence GI was notified, and recommended icy admission. Patient was admitted to the ICU, placed on octreotide, and he was a lso placed on Protonix. Supposed to undergo EGD this morning, patient received fluids and so far 1 unit of packed RBCs overnight. He is hemodynamically stable, denies any further episodes of hematemesis since last night. Continues to have a black stools. Again the patient has no previous history of peptic ulcer disease, no history of gastritis, and does not take any nonsteroidal anti-inflammatory drugs. Patient was reevaluated today on 06/26/19,, no further episodes of GI bleeding, patient underwent EGD yesterday and he was found to have antral ulcer bleeding, injected with epinephrine, and cautery was done using a gold probe. Patient stabilized, no further episodes of bleeding, his hemoglobin is stable, he remains on Protonix, and plans are to discharge the patient home if cleared by gastroenterology. Hemoglobin this morning is 10.3. Patient received 1 unit of packed RBCs since admission. Objective - Vital Signs Vital signs: Vital Signs Temp 97.8 F 06/26/19 08:00 Pulse 73 06/26/19 11:00 Resp 15 06/26/19 11:00 BP 109/81 06/26/19 11:00 Pulse Ox 95 06/26/19 11:00 Intake & Output 06/25/19 06/26/19 06/26/19 18:59 06:59 18:59 Intake Total 1612.5 1183.75 1110 Output Total 3100 1475 650 Balance -1487.5 -291.25 460 Weight 74.2 kg Intake: IV 1612.5 957.5 30 KVO 20 30 Octreotide 500 mcg In 12.5 37.5 Sodium Chloride 0.9% 250 ml @ 25 MCG/HR 12.5 mls/ hr IV .Q20H [facility] Rx#: [id number] Sodium Chloride 0.9% 1, 1300 900 000 ml @ 100 mls/hr IV . Q10H ONE Rx#:[id number] Intake, IV Titration 226.25 Amount Octreotide 500 mcg In 226.25 Sodium Chloride 0.9% 250 ml @ 25 MCG/HR 12.5 mls/ hr IV .Q20H [facility] Rx#: [id number] Oral 1080 Output: Urine 3100 1475 650 Other: Voiding Method Urinal Urinal Urinal # Bowel Movements 0 - Exam Physical Exam: 58-year-old asymptomatic. Hemodynamically stable on room air Head: Atraumatic normocephalic. HEENT:[Neck is supple.] [No neck masses.] [No thyromegaly.] [No JVD.]EOMI, no icteru Chest: [Clear throughout, no crackles, no rhonchi, no wheezes.] Cardiac Exam: [Normal S1 and S2, no S3 gallop, no murmur.] Abdomen: [Soft, nontender, no megaly, no rebound, no guarding, normal bowel sounds.] Extremities: [No clubbing, no edema, no cyanosis.] Neurological Exam: [No focal neurologic deficit.] Alert and oriented 3. Psychiatric: Normal mood affect and normal mental status examination. Skin: No rashes. Lymphatics: No lymphadenopathy. Musculoskeletal: No limitation in range of motion, no deformities. - Labs CBC & Chem 7: 06/26/19 05:31 06/26/19 05:31 Labs: Abnormal Lab Results - Last 24 Hours (Table) 06/26/19 06/26/19 Range/Units 05:31 05:31 RBC 3.10 L (4.30-5.90) m/uL Hgb 10.3 L (13.0-17.5) gm/dL Hct 30.2 L (39.0-53.0) % Sodium 136 L (137-145) mmol/L Creatinine 0.60 L (0.66-1.25) mg/dL Glucose 107 H (74-99) mg/dL AST 157 H (17-59) U/L ALT 123 H (4-49) U/L Alkaline Phosphatase 140 H (38-126) U/L Total Protein 5.6 L (6.3-8.2) g/dL Assessment and Plan Assessment: Impression: Acute upper GI bleeding, from antral gastric ulcer. Status post epinephrine injection and cautery. History of benign essential hypertension Acute blood loss anemia with hematemesis and melena. History of alcohol abuse Tobacco dependence syndrome. History of cholecystectomy History of prostate cancer and previous prostatectomy History of cervical spine surgery for cervical disc disease. Recommendation: Continue present treatment plan as recommended by gastroenterology. Discharge patient home on Protonix. Cleared from my perspective to discharge home on follow-up with gastroenterology in outpatient basis. Time with Patient: Less than 30
== END 2019-06-26 12:06 | disposition home or self-care (01) | DRG 378 ==
LOC: EC 17:55 → 6NMEDSUR 19:18 → 2SICU 06-25 02:26 → OBSVTOIN 06-25 03:00
PROVIDERS: ADMIT Internal Medicine; ATTEND Internal Medicine
PROC: 0DB68ZX Excision of Stomach, Via Natural or Artificial Opening Endoscopic, Diagnostic (ICD-10-PCS; principal; 2019-06-25 08:00)
PROC: 0W3P8ZZ Control Bleeding in Gastrointestinal Tract, Via Natural or Artificial Opening Endoscopic (ICD-10-PCS; principal; 2019-06-25 08:00)
PROC: 0DB58ZX Excision of Esophagus, Via Natural or Artificial Opening Endoscopic, Diagnostic (ICD-10-PCS; principal; 2019-06-25 08:00)
PROC: 30233N1 Transfusion of Nonautologous Red Blood Cells into Peripheral Vein, Percutaneous Approach (ICD-10-PCS; 2019-06-25 08:00)
DX: K25.4 Chronic or unspecified gastric ulcer with hemorrhage (principal); D62 Acute posthemorrhagic anemia; E83.42 Hypomagnesemia; E78.5 Hyperlipidemia, unspecified; F17.200 Nicotine dependence, unspecified, uncomplicated; I10 Essential (primary) hypertension; I45.10 Unspecified right bundle-branch block; K22.70 Barrett's esophagus without dysplasia; K44.9 Diaphragmatic hernia without obstruction or gangrene; K70.9 Alcoholic liver disease, unspecified; Y90.0 Blood alcohol level of less than 20 mg/100 ml; L29.9 Pruritus, unspecified; Z85.46 Personal history of malignant neoplasm of prostate; Z90.49 Acquired absence of other specified parts of digestive tract; Z90.79 Acquired absence of other genital organ(s)
CPT/HCPCS: 36415; 43239; 43243; 43255; 43270; 71046; 76700; 80053; 80074; 80320; 82553; 83690; 83735; 84100; 84484; 85025; 85027; 85610; 85730; 86850; 86900; 86901; 86920; 88305; 93005; 96361; 96372; 96374; 96375; 99285